=== PATIENT | female | born 1945 | race Caucasian/White ===

== ENCOUNTER 2021-10-31 08:52 | Outpatient (CLI) | payer MEDICARE ==
[2021-10-31] MEDS ORDERED: Iopamidol 370 76% 100 ML VIAL ONE (15:26)
[2021-10-31] MEDS ORDERED: Magnevist 469MG/ML 20 ML VIAL ONE (15:34)
== END 2021-10-31 08:53 | disposition home or self-care (01) ==
LOC: CSHCT 08:52
PROVIDERS: ATTEND Psychiatry & Neurology Neurology
DX: I60.9 Nontraumatic subarachnoid hemorrhage, unspecified (principal); I67.82 Cerebral ischemia; Z98.890 Other specified postprocedural states; E04.2 Nontoxic multinodular goiter; G93.89 Other specified disorders of brain
CPT/HCPCS: 70496; 70498; 70553; 82565; A9579; Q9967

== ENCOUNTER 2022-11-27 15:18 | Outpatient (CLI) | payer MEDICARE | END 2022-11-27 15:19 | disposition home or self-care (01) | LOC: CSHMRI 15:18 | PROVIDERS: ATTEND Psychiatry & Neurology Neurology | DX: M47.26 Other spondylosis with radiculopathy, lumbar region (principal); M48.061 Spinal stenosis, lumbar region without neurogenic claudication; M25.78 Osteophyte, vertebrae; Z98.1 Arthrodesis status | CPT/HCPCS: 72148; 73521 ==